=== PATIENT | female | born 1980 | race African-American/Black ===

== ENCOUNTER → 2018-03-04 | Outpatient (CLI) | payer OTHER | LOC: M RAD 11:25 | DX: R60.0 Localized edema (principal) ==

== ENCOUNTER 2019-01-22 11:32 | Emergency (ER) | payer OTHER ==
[~2019-01-22] VITALS: Ht 160 cm; Wt 75.1 kg
[2019-01-22 11:32] VITALS: BP 124/58
[2019-01-22] MEDS ORDERED: MECLIZINE 25 MG TABLET PO ONE (12:30)
--- NOTE | 2019-01-22 12:59 | REP ---
CT BRAIN WITHOUT IV CONTRAST: CT brain performed without IV contrast. Ventricles are normal in size and position with no midline shift or mass effect. Mcguire-white differentiation is well maintained. There is no acute hemorrhage. There is no extra-axial fluid collection. Bone window examination is unremarkable. IMPRESSION: Negative noncontrast CT brain. Electronically Signed by Valentin Mcguire MD 01/22/2019 03:49 P
[2019-01-22] MEDS ORDERED: MECL-68 PO (13:08)
== END 2019-01-22 13:16 | disposition home or self-care (01) ==
LOC: M ED 11:32
DX: R42 Dizziness and giddiness (principal)

== ENCOUNTER → 2019-06-17 | Outpatient (CLI) | payer OTHER ==
[~2019-06-17] MED LIST: MECL1TAB31 PO
--- NOTE | 2019-06-17 12:23 | REPMRS ---
Patient History The patient states she has not had a clinical breast exam in over a year. Family history of breast cancer at age 50 or over in maternal aunt. Digital Mammo Screening Bilat: June 17, 2019 - Exam #: [id number] Bilateral CC and MLO view(s) were taken. Technologist: Marine Garcia Technologist Prior study comparison: March 04, 2018, digital mammo diagnostic bilateral performed at [facility]. FINDINGS: The breast tissue is heterogeneously dense. This may lower the sensitivity of mammography. There is a moderate amount of heterogeneously dense fibroglandular tissue which is fairly symmetric. There is no interval development of dominant mass, architectural distortion, or grouped microcalcification typical of malignancy. There has been no change in the appearance of the mammogram from the prior studies. Assessment: BI-RADS/ACR category 1 mammogram. Negative Mammogram. Recommendation Routine screening mammogram of both breasts in 1 year (for women over age 40). This patient's Lifetime Breast Cancer RIsk is estimated at 13.6 %. This mammogram was interpreted with the aid of an FDA-approved computer-aided dectection system. Electronically Signed By: Landen Wallace MD 06/17/19 [id number]
== END ==
LOC: M RAD 10:09
PROVIDERS: ATTEND Physician Assistant
DX: Z12.31 Encounter for screening mammogram for malignant neoplasm of breast (principal); Z80.3 Family history of malignant neoplasm of breast